=== PATIENT | female | born 1995 | race Caucasian/White ===

== ENCOUNTER 2021-11-07 17:40 | Emergency (ER) | payer BC ==
[~2021-11-07] VITALS: Ht 172.7 cm; Wt 142.0 kg
[2021-11-07] MEDS ORDERED: ACETAMINOPHEN 325MG TABLET PO ONE (18:15)
[2021-11-07 21:31] VITALS: BP 145/72
== END 2021-11-07 21:31 | disposition home or self-care (01) ==
LOC: ER 17:40
DX: S05.12XA Contusion of eyeball and orbital tissues, left eye, initial encounter (principal); Y08.89XA Assault by other specified means, initial encounter; Y07.03 Male partner, perpetrator of maltreatment and neglect; Y93.89 Activity, other specified; Y92.018 Other place in single-family (private) house as the place of occurrence of the external cause
CPT/HCPCS: 70486; 99284